=== PATIENT | male | born 1950 | race Caucasian/White ===

== ENCOUNTER 2017-08-08 17:54 | Emergency (ER) | payer MEDICARE ==
[2017-08-08 17:54] VITALS: BMI 22.1
[2017-08-08 19:16] LABS: BASO # 0.1 K/uL (0.0-0.2); BASO % 0.5 % (0.0-2.0); EOS % 0.2 % (0.0-4.0); HEMOGLOBIN 13.6 g/dL (12.0-18.0); LYMPH # 1.1 K/uL (1.0-4.3); LYMPH % 8.9 % (20.0-40.0); MEAN CELL VOLUME 81.5 fl (80.0-94.0); MEAN CORPUSCULAR HEMOGLOBIN 28.2 pg (27.0-31.0); MEAN CORPUSCULAR HGB CONC 34.5 g/dL (33.0-37.0); MEAN PLATELET VOLUME 9.4 fl (7.2-11.7); MONO # 0.3 K/uL (0.0-0.8); MONO % 2.9 % (0.0-10.0); NEUT # 10.3 K/uL (1.8-7.0); NEUT % 87.5 % (50.0-75.0); PLATELET COUNT 222 K/uL (130-400); RBC 4.84 Mil/uL (4.40-5.90); RED CELL DISTRIBUTION WIDTH 14.7 % (11.5-14.5); WHITE BLOOD COUNT 11.8 K/uL (4.8-10.8)
[2017-08-08 19:21] LABS: ALB/GLOB RATIO 1.1 (1.0-2.1); ALBUMIN 4.3 g/dL (3.5-5.0); ALT/SGPT 30 U/L (21-72); AST/SGOT 28 U/L (17-59); BLOOD UREA NITROGEN 20 mg/dl (9-20); CALCIUM 9.1 mg/dL (8.4-10.2); GFR AFRICAN-AMERICAN > 60; GFR NON-AFRICAN AMERICAN > 60
[2017-08-08 19:23] LABS: PARTIAL THROMBOPLASTIN TIME 26.5 Seconds (25.6-37.1); PROTHROMBIN TIME 10.7 Seconds (9.8-13.1)
[2017-08-08 20:29] LABS: LYMPHOCYTE 12 % (20-50); MONOCYTE 3 % (0-10); NEUTROPHIL 85 % (42-75); PLATELET ESTIMATE NORMAL (NORMAL); TOTAL CELLS COUNTED 100
[2017-08-08] MEDS ORDERED: Morphine 4 MG/ML VIAL ONE (20:29)
[2017-08-08] MEDS ORDERED: Morphine 4 MG/ML VIAL IV STA (20:59)
--- NOTE | 2017-08-08 21:33 | ED PDOC ---
Lower Extremity Pain/Injury Time Seen by Provider: 08/08/17 18:09 Chief Complaint (Nursing): Lower Extremity Problem/Injury Chief Complaint (Provider): Lower Extremity Problem/Injury History Per: Patient History/Exam Limitations: no limitations Onset/Duration Of Symptoms: Days (x1) Current Symptoms Are (Timing): Still Present Additional History Per: EMS Additional Complaint(s): 66 year old male presents to the emergency department via EMS complaining of right hip pain which radiates anteriorly down right leg onset one day. Patient states pain is worse with movement. Denies trauma, swelling, weakness and paresthesias. He notes taking Motrin with no relief. PMD: none provided Past Medical History Reviewed: Historical Data, Nursing Documentation, Vital Signs Vital Signs: Last Vital Signs Temp 98.4 F 08/08/17 17:58 Pulse 72 08/08/17 17:58 Resp 18 08/08/17 17:58 BP 140/92 H 08/08/17 17:58 Pulse Ox 99 08/08/17 17:58 - Medical History PMH: HTN Denies: Chronic Kidney Disease - Surgical History Other surgeries: right arm; prostate cyst removal - Family History Family History: States: Unknown Family Hx - Social History Current smoker - smoking cessation education provided: No Alcohol: None Drugs: Denies - Home Medications Home Medications: Ambulatory Orders Medication Instructions Recorded Aspirin [Aspirin Chewable] 81 mg PO DAILY 05/14/15 Ciprofloxacin [Cipro] 500 mg PO BID 05/14/15 Dutasteride [Dutasteride] 0.5 mg DAILY 05/14/15 Ibuprofen [Motrin Tab] 800 mg Q6 PRN 05/14/15 Quinapril HCl [Quinapril] 40 mg PO DAILY 05/14/15 Tamsulosin [Flomax] 0.4 mg PO DAILY 05/14/15 Naproxen [Naprosyn] 500 mg PO BID PRN #15 tablet 08/08/17 oxyCODONE/Acetaminophen [Percocet 1 tab PO Q6H PRN #15 tab 08/08/17 5/325 mg Tab] - Allergies Allergies/Adverse Reactions: Allergies Allergy/AdvReac Type Severity Reaction Status Date / Time No Known Allergies Allergy Verified 08/08/17 17:58 Review of Systems ROS Statement: Except As Marked, All Systems Reviewed And Found Negative Constitutional: Negative for: Other (trauma) Musculoskeletal: Positive for: Leg Pain (right hip, radiating down right leg anteriorly). Negative for: Other (no swelling in right leg) Neurological: Negative for: Weakness, Other (paresthesias) Physical Exam - Reviewed Nursing Documentation Reviewed: Yes Vital Signs Reviewed: Yes - Physical Exam Appears: Positive for: In Acute Distress (moderate) Head Exam: Positive for: ATRAUMATIC, NORMOCEPHALIC Skin: Positive for: Normal Color, Warm, Dry Eye Exam: Positive for: EOMI, Normal appearance, PERRL Neck: Positive for: Normal, Painless ROM, Supple Cardiovascular/Chest: Positive for: Regular Rate, Rhythm. Negative for: Murmur Respiratory: Positive for: Normal Breath Sounds. Negative for: Accessory Muscle Use, Respiratory Distress Pulses-Dorsalis Pedis (L): 2+ Pulses-Dorsalis Pedis (R): 2+ Gastrointestinal/Abdominal: Positive for: Normal Exam, Soft. Negative for: Tenderness Back: Positive for: Normal Inspection Extremity: Positive for: Normal ROM, Tenderness (right lateral hip), Other ( sensation in tact). Negative for: Pedal Edema, Calf Tenderness Neurologic/Psych: Positive for: Alert, Oriented (x3). Negative for: Motor/ Sensory Deficits - Laboratory Results Result Diagrams: 08/08/17 19:06 08/08/17 19:06 - ECG O2 Sat by Pulse Oximetry: 99 (RA) Pulse Ox Interpretation: Normal - Progress ED Course And Treament: Pt feels better, able to ambulate without difficulty. Re-evaluation Time: 22:00 Condition: Improved Medical Decision Making Medical Decision Making: Time: 18:27 Initial Impression: hip pain, arthritis Initial Plan: --CMP --ED Urine dipstick --CBC with differential --PTT / PT --Morphine 2mg IV --Toradol 15mg IVP --Zofran 4mg PO --Right Hip XR Time: 21:24 Right Hip XR FINDINGS: Bones/joints: No acute fracture. Mild sclerosis along the inferior aspect of both sacroiliac joints. The cortical margins of the right sacroiliac joint are indistinct, suggestive of erosive changes. The cortical margins of the left sacroiliac joint are normal in appearance. Very mild degenerative changes of both hips. The right femoral head is anatomically located relative to the acetabulum. The left femoral head appears to be anatomically located relative to the acetabulum on the frontal view of the pelvis. No diastasis of the pubis symphysis or sacroiliac joints. Soft tissues: No acute findings. IMPRESSION: 1. Abnormalities of the sacroiliac joints as described above are suspicious for sacroiliitis. If clinically warranted, further evaluation could be obtained with MRI or CT. 2. Very mild degenerative changes of both hips. Scribe Attestation: Documented by Brittnee Harrison, acting as a scribe for Ashwini Merritt MD. Provider Scribe Attestation: All medical record entries made by the Scribe were at my direction and personally dictated by me. I have reviewed the chart and agree that the record accurately reflects my personal performance of the history, physical exam, medical decision making, and the department course for this patient. I have also personally directed, reviewed, and agree with the discharge instructions and disposition. Disposition - Clinical Impression Clinical Impression: Sacroiliitis - Disposition Referrals: [facility] [Outside] Brandon Cohen MD [Staff Provider] - Disposition: Routine/Home Disposition Time: 22:12 Condition: IMPROVED Prescriptions: Naproxen [Naprosyn] 500 mg PO BID PRN #15 tablet PRN Reason: Pain, Moderate (4-7) oxyCODONE/Acetaminophen [Percocet 5/325 mg Tab] 1 tab PO Q6H PRN #15 tab PRN Reason: Pain, Severe (8-10) Instructions: Hip Pain Forms: [facility] (Cymro) Print Language: ENGLISH
[2017-08-08 22:49] VITALS: BP 139/79; PULSE 82; RESP 16; TEMP 98.2
--- NOTE | 2017-08-09 09:35 | RAD ---
PROCEDURE: Right Hip Radiographs. HISTORY: R hip pain COMPARISON: None. FINDINGS: BONES: Bone alignment and mineralization are normal. There is no acute displaced fracture or bone destruction. JOINTS: The joint spaces are preserved. SOFT TISSUES: Normal. OTHER FINDINGS: None. IMPRESSION: No acute fracture or dislocation.
[2017-08-09 18:59] VITALS: O2SAT 99
== END 2017-08-08 22:49 | disposition home or self-care (01) ==
LOC: H.ER 17:54
DX: M46.1 Sacroiliitis, not elsewhere classified (principal); I10 Essential (primary) hypertension; Z79.82 Long term (current) use of aspirin
CPT/HCPCS: 73502; 80053; 85025; 85610; 85730; 96374; 96375; 96376; 99283; J1885; J2270